=== PATIENT | male | born 1935 | race Caucasian/White ===

== ENCOUNTER → 2016-08-04 | Outpatient (CLI) | payer MEDICARE, OTHER ==
[~2016-08-04] MED LIST: ASPI-664 PO; FAMO20TA18 PO; LEVO500T72 PO; LINA5TAB PO; PIOG45TA6 PO
--- NOTE | 2016-08-04 14:04 | RADRPT ---
PROCEDURE: Retroperitoneal US. CLINICAL INDICATION: Renal insufficiency TECHNIQUE: Multiple sonographic images of the kidneys and retroperitoneum were obtained. The imag es were reviewed on a PACS workstation. COMPARISON: 10/31/2015 FINDINGS: The right kidney measures 8.3 cm. There is a 9 mm simple cyst in the right kidney. The left kidney was not well seen due to the patient's inability to cooperate. No kidney stones are visualized. There is no evidence for hydronephrosis. The urinary bladder is normal. RPTAT: AA IMPRESSION: Left kidney not well seen due to the patient's inability to cooperate. No gross evidence of hydronephrosis. .Ifeanyi Garza MD, Date Time Electronically viewed and signed by .Ifeanyi Garza MD, MD on 08/04/2016 14:04 .S/
--- NOTE | 2016-08-04 14:08 | RADRPT ---
PROCEDURE: US Carotids. CLINICAL INDICATION: bruit , PERIPHERAL VASCULAR DISEASE TECHNIQUE: Multiple sonographic of the carotid bifurcation region and vertebral arteries were obta ined utilizing laughlin scale, duplex and color-flow imaging. The images were reviewed on a PACS worksta tion. COMPARISON: No prior studies are available for comparison. FINDINGS: Right arm blood pressure 177/ 87 Left arm (pressure 147/ 79 Evaluation of the right carotid bifurcation region reveals mild to moderate calcific atherosclerotic disease. . There is a 26% stenosis in the right distal common carotid artery.. There is a 30% frandy nosis in the right carotid bulb. Evaluation of the left carotid bifurcation region reveals mild to moderate calcific atherosclerotic disease. . There is a 31% stenosis in the left carotid bulb region. There is antegrade flow within the right vertebral artery. There is retrograde flow in the vertebra l artery. RIGHT CAROTID MEASUREMENTS: Common Carotid Reekyw89.7 (cm/sec) Internal Carotid Artery - cxakvqmb70.6 (cm/sec) Internal Carotid Artery - mid60.1 (cm/sec) Internal Carotid Artery - hpegvg41.4 (cm/sec) Internal Carotid/Common Carotid1.49 LEFT CAROTID MEASUREMENTS: Common Carotid Plkgnv36.1 (cm/sec) Internal Carotid Artery - tmzhtozx66.3 (cm/sec) Internal Carotid Artery - mid70.4 (cm/sec) Internal Carotid Artery - .6 (cm/sec) Internal Carotid/Common Carotid1.13 RPTAT: AA IMPRESSION: No evidence for hemodynamically significant stenosis in the bilateral internal carotid arteries - va lidated velocity measurements with angiographic measurements, velocity criteria are extrapolated fro m diameter data as defined by the Society of Radiologists in Ultrasound Consensus Conference Radiolo gy 2003; 229;340-346. This study does indirectly reference the measurement of the distal ICA diamet er as the denominator for stenosis measurement. Retrograde flow in the left vertebral artery, suspicious for a proximal subclavian artery stenosis. .Ifeanyi Garza MD, Date Time Electronically viewed and signed by .Ifeanyi Garza MD, MD on 08/04/2016 14:08 .S/
== END | disposition home or self-care (01) ==
LOC: U/S 08:49
PROVIDERS: ATTEND Internal Medicine
DX: N18.2 Chronic kidney disease, stage 2 (mild) (principal); I73.9 Peripheral vascular disease, unspecified
CPT/HCPCS: 76775; 93880

== ENCOUNTER 2017-03-19 12:01 | Emergency (ER) | payer MEDICARE, OTHER ==
[~2017-03-19] VITALS: Ht 172.7 cm; Wt 51.5 kg
[2017-03-19 12:25] VITALS: Ht 172.7 cm; Wt 51.5 kg
[2017-03-19] MEDS ORDERED: SOD CHLORIDE 0.9% 1,000 ML IV STA (14:01)
[2017-03-19 14:15] LABS: BASOPHILS % 0.4 % (0.0-2.0); EOSINOPHILS % 0.2 % (0.0-7.0); HEMATOCRIT 40.1 % (42.0-52.0); HEMOGLOBIN 14.5 g/dl (14.0-18.0); LYMPHOCYTES % 23.8 % (15.0-51.0); MEAN CORPUSCULAR HEMOGLOBIN 32.9 pg (29.0-33.0); MEAN CORPUSCULAR HGB CONC 36.2 g/dl (32.0-37.0); MEAN CORPUSCULAR VOLUME 90.9 fl (82.0-101.0); MEAN PLATELET VOLUME 11.2 fl (7.4-10.4); MONOCYTE # 0.5 10^3/ul (0.3-0.9); MONOCYTES % 6.2 % (0.0-11.0); NEUTROPHIL # 5.8 10^3/ul (1.6-7.5); PLATELET COUNT 282 10^3/UL (140-415); RED BLOOD COUNT 4.41 10^6/ul (4.70-6.10); RED CELL DISTRIBUTION WIDTH 11.9 % (11.5-14.5); WHITE BLOOD COUNT 8.3 10^3/ul (4.8-10.8)
[2017-03-19] MEDS ORDERED: GABA100C14 PO (14:23)
[2017-03-19] MEDS ORDERED: ATOR20TA38 PO (14:24)
[2017-03-19] MEDS ORDERED: METF1000 PO (14:24)
[2017-03-19 14:35] LABS: ALBUMIN 4.5 g/dl (3.3-4.9); ALBUMIN/GLOBULIN RATIO 1.12; BILIRUBIN,INDIRECT 0.4 mg/dl (0-1.1); BILIRUBIN,TOTAL 0.4 mg/dl (0.2-1.3); CREATININE 1.61 mg/dl (0.61-1.24); POTASSIUM 4.7 mmol/L (3.5-5.1); TOTAL PROTEIN 8.5 g/dl (6.1-8.1)
--- NOTE | 2017-03-19 14:38 | ERD ---
ER Documentation Chief Complaint Chief Complaint hyperglycemia sent by angie LEACH This is an 82-year-old male with a past medical history of hypertension, hyperlipidemia, GERD, COPD, diabetes, on a baby aspirin daily, who is presenting from his primary care doctor's office for hyperglycemia. Patient is reportedly noncompliant on his medicines. He goes back and forth between here in [place] frequently, and he is does not take any of his medications as prescribed. He frequently comes to the ER when he has symptoms to seek treatment. Today, he had a normal office appointment. He does not endorse any symptoms, but he was told to come to the emergency department for a elevated blood sugar. The patient denies feeling sick recently. The patient denies fever or chills. The patient has had no headache or vision changes. The patient does not endorse neck or back pain. The patient denies lightheadedness or dizziness. The patient has had no chest pain or shortness of breath or trouble breathing. The patient denies nausea or vomiting. The patient denies abdominal pain or changes to bowel movements or urination. The patient has had no focal deficits. The patient has had no weakness or numbness or tingling to the face or extremities. ROS All systems reviewed and are negative except as per history of present illness. Medications Home Meds Active Scripts Aspirin* (Aspirin* EC) 81 Mg Tablet.dr, 81 MG PO DAILY for 30 Days, 2 Refills Prov:JERESY RODRIGUEZ 10/30/15 Reported Medications Metformin Hcl* (Metformin Hcl*) 1,000 Mg Tablet, 1000 MG PO WITH BREAKFAST DINNE , #30 TAB 03/19/17 Atorvastatin Calcium* (Atorvastatin Calcium*) 20 Mg Tablet, 20 MG PO QHS, #30 TAB 03/19/17 Gabapentin* (Gabapentin*) 100 Mg Capsule, 100 MG PO TID, #90 CAP 03/19/17 Discontinued Reported Medications Linagliptin (TRADJENTA) 5 Mg Tablet, 5 MG PO DAILY, TAB 10/21/15 Pioglitazone Hcl* (Actos*) 45 Mg Tablet, 45 MG PO DAILY, #30 TAB 10/21/15 Discontinued Scripts Levofloxacin* (Levaquin*) 500 Mg Tablet, 500 MG PO DAILY@06 for 5 Days, TAB Prov:JERSEY RODRIGUEZ 10/30/15 Famotidine* (Famotidine*) 20 Mg Tablet, 20 MG PO BID for 30 Days, TAB Prov:JERSEY RODRIGUEZ 10/30/15 Allergies Allergies: Coded Allergies: No Known Allergy (Unverified , 03/19/17) PMhx/Soc History of Surgery: No Anesthesia Reaction: No Hx Neurological Disorder: No Hx Respiratory Disorders: No Hx Cardiac Disorders: Yes (HTN) Hx Psychiatric Problems: No Hx Miscellaneous Medical Probl: Yes (htn, bradycardia,R sided PNA,COPD,tobacco abuse,lung nodule) Hx Alcohol Use: No Hx Substance Use: No Hx Tobacco Use: Yes FmHx Family History: diabetes Physical Exam Vitals Vital Signs Date Time Temp Pulse Resp B/P Pulse Ox O2 Delivery O2 Flow Rate FiO2 03/19/17 19:29 97.3 68 23 125/84 100 Room Air 68 03/19/17 18:06 75 18 130/87 99 Room Air 03/19/17 15:04 75 20 101/74 99 Room Air 03/19/17 12:25 97.3 69 20 105/59 100 Physical Exam Const: No apparent distress, well-developed, well-nourished Head: Atraumatic Eyes: Normal Conjunctiva. Extraocular movements intact. ENT: Normal External Ears, Nose and Mouth. Neck: Full range of motion. ~ No meningismus. Resp: Clear to auscultation bilaterally Cardio: Regular rate and rhythm, no murmurs Abd: Soft, non tender, non distended. Normal bowel sounds Skin: No petechiae or rashes Back: No midline or flank tenderness Ext: No cyanosis, or edema Neur: Awake and alert, oriented 4. Cranial nerves intact. No facial droop. Normal strength and sensation in all extremities. Coordination with finger to nose normal. Psych: Normal Mood and Affect Result Diagram: 03/19/17 1405 03/19/17 1830 Results 24 hrs Laboratory Tests Test 03/19/17 13:39 03/19/17 14:05 03/19/17 15:43 03/19/17 18:30 Bedside Glucose 358mg/dL 308mg/dL White Blood Count 8.310^3/ul Red Blood Count 4.4110^6/ul Hemoglobin 14.5g/dl Hematocrit 40.1% Mean Corpuscular Volume 90.9fl Mean Corpuscular Hemoglobin 32.9pg Mean Corpuscular Hemoglobin Concent 36.2g/dl Red Cell Distribution Width 11.9% Platelet Count 61749^3/UL Mean Platelet Volume 11.2fl Neutrophils % 69.0% Lymphocytes % 23.8% Monocytes % 6.2% Eosinophils % 0.2% Basophils % 0.4% Nucleated Red Blood Cells % 0.0/100WBC Neutrophils # 5.810^3/ul Lymphocytes # 2.010^3/ul Monocytes # 0.510^3/ul Eosinophils # 0.010^3/ul Basophils # 0.010^3/ul Nucleated Red Blood Cells # 0.010^3/ul Sodium Level 142mmol/L 140mmol/L Potassium Level 4.7mmol/L 4.4mmol/L Chloride Level 99mmol/L 107mmol/L Carbon Dioxide Level 28mmol/L 23mmol/L Anion Gap 20 14 Blood Urea Nitrogen 51mg/dl 45mg/dl Creatinine 1.61mg/dl 1.23mg/dl Glucose Level 318mg/dl 298mg/dl Calcium Level 11.0mg/dl 9.3mg/dl Total Bilirubin 0.4mg/dl Direct Bilirubin 0.00mg/dl Indirect Bilirubin 0.4mg/dl Aspartate Amino Transf (AST/SGOT) 17IU/L Alanine Aminotransferase (ALT/SGPT) 19IU/L Alkaline Phosphatase 110IU/L Total Protein 8.5g/dl Albumin 4.5g/dl Globulin 4.00g/dl Albumin/Globulin Ratio 1.12 Current Medications Medications (Trade) Dose Ordered Sig/Malcolm Route PRN Reason Start Time Stop Time Status Last Admin Dose Admin Sodium Chloride 1,000 ml @ 1,000 mls/hr Q1H STAT IV 03/19/17 14:01 03/19/17 15:00 DC 03/19/17 14:12 Sodium Chloride (NS) 1,000 ml @ 1,000 mls/hr Q1H ONCE IV 03/19/17 17:30 03/19/17 18:29 DC 03/19/17 17:16 Insulin Human Regular (Humulin R) 5 unit ONCE ONCE SC 03/19/17 17:30 03/19/17 17:31 DC 03/19/17 17:28 Procedures/MDM MDM The patient's presentation warrants further investigation. The patient did have an elevated POC glucose here. Blood work will be obtained and reviewed for further evaluation of his hyperglycemia. LABS The patient's blood work was obtained and reviewed. The patient's CBC shows no leukocytosis or left shift. The patient is afebrile and does not appear systemically ill. I do not suspect a systemic infection. The patient is not anemic today. The patient's platelet count is unremarkable. The patient's CMP shows a significant hyperglycemia above 300. It also reveals a very mild anion gap. The patient does not endorse symptoms of DKA, but I will give him 2 L IV fluids and insulin in the emergency department to close the gap. The patient also has an elevated creatinine today. Looking back on previous records, it appears that his baseline is around 1.0. His creatinine was 1.6 today. This is likely related to his noncompliance with medications and his poorly controlled diabetes. After treatment, a repeat BMP was obtained that demonstrated a closed gap, improved blood sugar and improved creatinine. TREATMENT/DISPOSITION At this time, I feel the patient is stable for discharge. He needs to have a discussion with his primary care doctor about his goals of therapy. I did discuss with the patient the need to comply with his medications as well as the risks he takes on himself by not complying. I do not see any evidence of infection in this patient. He may follow-up with his primary care doctor regarding his diabetes as well as renal function. At this time, I feel that the patient stable for discharge. He will need follow -up with his primary care physician in 2-3 days. He will be given strict precautions with which to return to the emergency department. The patient's blood pressure was elevated at greater than 120/80 while in the emergency department. The patient was otherwise stable with no evidence of hypertensive urgency or emergency. The patient will require reevaluation of his blood pressure in 2-3 days, but this may be completed by a primary care physician as an outpatient. He does not require admission for blood pressure control. Departure Diagnosis: Primary Impression: Hyperglycemia Additional Impressions: Kidney disease Noncompliance with medications Condition: CATHY Harrington MD Mar 19, 2017 14:38
[2017-03-19] MEDS ORDERED: INSULIN REGULAR, HUMAN 100 UNIT/1 ML 3ML VIAL SC ONE (17:30)
[2017-03-19] MEDS ORDERED: SOD CHLORIDE 0.9% 1,000 ML IV ONE (17:30)
[2017-03-19 19:15] LABS: CALCIUM 9.3 mg/dl (8.4-10.2); CREATININE 1.23 mg/dl (0.61-1.24); POTASSIUM 4.4 mmol/L (3.5-5.1)
[2017-03-19 19:29] VITALS: BP 125/84; PULSE 68; RESP 23; TEMP 97.3
== END 2017-03-19 20:24 | disposition home or self-care (01) ==
LOC: E/R 12:01
DX: E11.65 Type 2 diabetes mellitus with hyperglycemia (principal); N20.0 Calculus of kidney; I10 Essential (primary) hypertension; J44.9 Chronic obstructive pulmonary disease, unspecified; Z79.82 Long term (current) use of aspirin; Z79.84 Long term (current) use of oral hypoglycemic drugs; Z91.19 Patient's noncompliance with other medical treatment and regimen
CPT/HCPCS: 80048; 80053; 82962; 85025; 96372; 99284; J7030

== ENCOUNTER 2017-03-21 11:51 | Inpatient (IN) | payer MEDICARE, OTHER ==
[~2017-03-21] VITALS: Ht 162.6 cm; Wt 51.5 kg
[~2017-03-21 11:51] MED LIST changes: +ATOR20TA38 PO; -FAMO20TA18 PO; +GABA100C14 PO; -LEVO500T72 PO; -LINA5TAB PO; +METF1000 PO; -PIOG45TA6 PO
[2017-03-21] MEDS ORDERED: SOD CHLORIDE 0.9% 1,000 ML IV STA (16:29)
[2017-03-21] MEDS ORDERED: CARV6.2579 PO (17:37)
[2017-03-21] MEDS ORDERED: LACTATED RINGER'S 1,000 ML IV STA (17:50)
[2017-03-21] MEDS ORDERED: INSULIN REGULAR 10 ML INJ SC STA (17:50)
[2017-03-21] MEDS ORDERED: METF850T PO (17:51)
[2017-03-21] MEDS ORDERED: ONDANSETRON 4 MG INJ IV PRN ×2 (19:00→19:30)
[2017-03-21] MEDS ORDERED: ACETAMINOPHEN 325 MG TAB PO PRN ×2 (19:00→19:30)
--- NOTE | 2017-03-21 19:10 | ERD ---
ER Documentation Chief Complaint Chief Complaint SENT BY CLINIC FOR HYPERGLYCEMIA (BS 511) HPI 83-year-old male with a history of diabetes and high cholesterol sent from his primary care doctor's clinic for hyperglycemia. Patient states he was here 2 days ago for the same reason. He denies any physical symptoms of chest pain, shortness of breath, dizziness, dysuria, fever, or chills. But per his daughter , he has been having increased urination and increased thirst. He used to be on metformin 1 g twice daily, however he ran out of these medications. Recently he was in [place] and was prescribed metformin 850 mg twice daily. He is not on any other diabetes medications. Currently he is not taking any other medications as he is out of all of his other medications. ROS All systems reviewed and are negative except as per history of present illness. Medications Home Meds Active Scripts Aspirin* (Aspirin* EC) 81 Mg Tablet.dr, 81 MG PO DAILY for 30 Days, 2 Refills Prov:JERSEY RODRIGUEZ. 10/30/15 Reported Medications Metformin Hcl* (Metformin Hcl*) 850 Mg Tablet, 850 MG PO WITH BREAKFAST DINNE, # 60 TAB WHEN PATIENT IS OUT OF HIS MEDS IN [facility],HE BUY AND TAKE THERE METFORMIN 850MG. 03/21/17 Carvedilol* (Carvedilol*) 6.25 Mg Tablet, 6.25 MG PO BID, #60 TAB 03/21/17 Metformin Hcl* (Metformin Hcl*) 1,000 Mg Tablet, 1000 MG PO WITH BREAKFAST DINNE , #30 TAB 03/19/17 Atorvastatin Calcium* (Atorvastatin Calcium*) 20 Mg Tablet, 20 MG PO QHS, #30 TAB 03/19/17 Gabapentin* (Gabapentin*) 100 Mg Capsule, 100 MG PO TID, #90 CAP 03/19/17 Discontinued Reported Medications Linagliptin (TRADJENTA) 5 Mg Tablet, 5 MG PO DAILY, TAB 10/21/15 Pioglitazone Hcl* (Actos*) 45 Mg Tablet, 45 MG PO DAILY, #30 TAB 10/21/15 Discontinued Scripts Levofloxacin* (Levaquin*) 500 Mg Tablet, 500 MG PO DAILY@06 for 5 Days, TAB Prov:JERSEY RODRIGUEZ 10/30/15 Famotidine* (Famotidine*) 20 Mg Tablet, 20 MG PO BID for 30 Days, TAB Prov:JERSEY RODRIGUEZ. 10/30/15 Allergies Allergies: Coded Allergies: No Known Allergy (Unverified , 03/21/17) PMhx/Soc History of Surgery: No Anesthesia Reaction: No Hx Neurological Disorder: No Hx Respiratory Disorders: No Hx Cardiac Disorders: Yes (HTN) Hx Psychiatric Problems: No Hx Miscellaneous Medical Probl: Yes (htn, bradycardia,R sided PNA,COPD,tobacco abuse,lung nodule) Hx Alcohol Use: No Hx Substance Use: No Hx Tobacco Use: Yes Smoking Status: Former smoker FmHx Family History: No coronary disease Physical Exam Vitals Vital Signs Date Time Temp Pulse Resp B/P Pulse Ox O2 Delivery O2 Flow Rate FiO2 03/21/17 16:40 61 20 87/75 100 Room Air 03/21/17 11:53 96.8 62 20 162/69 98 Physical Exam Const: Appears stated age, no apparent distress, nontoxic, thin male Head: Atraumatic Eyes: Normal Conjunctiva ENT: Dry mucous membranes Neck: Full range of motion..~ No meningismus. Resp: Clear to auscultation bilaterally Cardio: Regular rate and rhythm, no murmurs Abd: Soft, non tender, non distended. Normal bowel sounds Skin: No petechiae or rashes Back: No midline or flank tenderness Ext: No cyanosis, or edema Neur: Awake and alert, oriented 3, cranial nerves intact, strength and sensations intact in all 4 extremities Psych: Normal Mood and Affect Result Diagram: 03/21/17 1655 03/21/17 1655 Results 24 hrs Laboratory Tests Test 03/21/17 16:55 03/21/17 17:50 White Blood Count 6.210^3/ul Red Blood Count 4.1110^6/ul Hemoglobin 13.6g/dl Hematocrit 38.2% Mean Corpuscular Volume 92.9fl Mean Corpuscular Hemoglobin 33.1pg Mean Corpuscular Hemoglobin Concent 35.6g/dl Red Cell Distribution Width 12.4% Platelet Count 33818^3/UL Mean Platelet Volume 10.8fl Neutrophils % 60.8% Lymphocytes % 30.5% Monocytes % 6.1% Eosinophils % 1.8% Basophils % 0.5% Nucleated Red Blood Cells % 0.0/100WBC Neutrophils # 3.810^3/ul Lymphocytes # 1.910^3/ul Monocytes # 0.410^3/ul Eosinophils # 0.110^3/ul Basophils # 0.010^3/ul Nucleated Red Blood Cells # 0.010^3/ul Sodium Level 137mmol/L Potassium Level 5.3mmol/L Chloride Level 99mmol/L Carbon Dioxide Level 24mmol/L Anion Gap 19 Blood Urea Nitrogen 40mg/dl Creatinine 1.36mg/dl Glucose Level 588mg/dl Calcium Level 9.6mg/dl Urine Color YELLOW Urine Clarity CLEAR Urine pH 5.0 Urine Specific [place] 1.022 Urine Ketones NEGATIVEmg/dL Urine Nitrite NEGATIVEmg/dL Urine Bilirubin NEGATIVEmg/dL Urine Urobilinogen NEGATIVEmg/dL Urine Leukocyte Esterase NEGATIVELeu/ul Urine Hemoglobin NEGATIVEmg/dL Urine Glucose 3+mg/dL Urine Total Protein NEGATIVEmg/dl Current Medications Medications (Trade) Dose Ordered Sig/Malcolm Route PRN Reason Start Time Stop Time Status Last Admin Dose Admin Sodium Chloride 1,000 ml @ 1,000 mls/hr Q1H STAT IV 03/21/17 16:29 03/21/17 17:28 DC 03/21/17 18:05 Lactated Ringer's (Lr) 1,000 ml @ 1,000 mls/hr Q1H STAT IV 03/21/17 17:50 03/21/17 18:49 DC 03/21/17 18:46 Insulin Human Regular (Novolin-R) 10 unit ONCE STAT SC 03/21/17 17:50 03/21/17 17:53 DC Ondansetron HCl (Zofran Inj) 4 mg BRIDGE ORDER PRN IV NAUSEA AND/OR VOMITING 03/21/17 19:00 03/22/17 18:59 Acetaminophen (Tylenol Tab) 650 mg ER BRIDGE PRN PO MILD PAIN/FEVER 03/21/17 19:00 03/22/17 18:59 Procedures/MDM EMERGENT LABS AND DIAGNOSTIC STUDIES: Lab Results above were reviewed and interpreted by me. CBC unremarkable BMP shows signs of renal insufficiency, mild hyperkalemia, and severe hyperglycemia UA shows 3+ blood, no ketones 12-lead EKG was interpreted by Charity Johansen MD: Normal Sinus Rhythm Normal axis Normal intervals No acute ST or T wave changes suggestive of acute ischemia or STEMI. Initial Nursing notes reviewed. Previous Medical Records requested via the Electronic Health Record. EMERGENCY DEPARTMENT COURSE / MEDICAL DECISION MAKING: Patient is presenting for the second time to the ER with hyperglycemia not well controlled with his metformin. Vitals are stable. I have a low suspicion for sepsis. Labs were notable for renal insufficiency but no evidence of metabolic acidosis. His hyperglycemia was treated with 2 L of IV fluids and subcu insulin. At this time his EKG does not show evidence of hyperkalemic changes. However I do not believe the patient is stable for discharge and will require admission for treatment of his severe hyperglycemia. Critical Care Time: 35 minutes Treatments/Evaluations: Close monitoring and treatment of unstable vital signs, cardiorespiratory, and neurologic status, while maintaining tight balance of fluid, respiratory, and cardiac interventions. This time includes discussing the case with the patient and the patients family. This time does not include all procedures stated elsewhere in this record. This time also includes reviewing old records, labs and radiological studies. This time includes examining and re-examining the patient. Additionally, this time also includes arranging care with admitting and consulting physicians. Departure Diagnosis: Primary Impression: Uncontrolled diabetes mellitus Diabetes mellitus type: type 2 Diabetes mellitus complication status: without complication Diabetes mellitus [facility] insulin use: without intermission coordinator use Qualified Code: E11.65 - Uncontrolled type 2 diabetes mellitus without complication, without long-term current use of insulin Additional Impressions: Hyperkalemia Renal insufficiency Condition: Serious JESSICA JOHANSEN MD Mar 21, 2017 19:07
--- NOTE | 2017-03-21 19:15 | PN ---
Date/Time of Note Date/Time of Note DATE: 03/21/17 TIME: 19:15 Exam/Review of Systems Vital Signs Vitals Vital Signs Date Time Temp Pulse Resp B/P Pulse Ox O2 Delivery O2 Flow Rate FiO2 03/21/17 16:40 61 20 87/75 100 Room Air 03/21/17 11:53 96.8 Results Result Diagram: 03/21/17 1655 03/21/17 1655 Results 24 hrs Laboratory Tests Test 03/21/17 16:55 03/21/17 17:50 White Blood Count 6.2 # Red Blood Count 4.11 L Hemoglobin 13.6 L Hematocrit 38.2 L Mean Corpuscular Volume 92.9 Mean Corpuscular Hemoglobin 33.1 H Mean Corpuscular Hemoglobin Concent 35.6 Red Cell Distribution Width 12.4 Platelet Count 230 Mean Platelet Volume 10.8 H Neutrophils % 60.8 Lymphocytes % 30.5 Monocytes % 6.1 Eosinophils % 1.8 Basophils % 0.5 Nucleated Red Blood Cells % 0.0 Neutrophils # 3.8 Lymphocytes # 1.9 Monocytes # 0.4 Eosinophils # 0.1 Basophils # 0.0 Nucleated Red Blood Cells # 0.0 Sodium Level 137 Potassium Level 5.3 H Chloride Level 99 Carbon Dioxide Level 24 Anion Gap 19 H Blood Urea Nitrogen 40 H Creatinine 1.36 H Glucose Level 588 #*H Calcium Level 9.6 Urine Color YELLOW Urine Clarity CLEAR Urine pH 5.0 Urine Specific [place] 1.022 Urine Ketones NEGATIVE Urine Nitrite NEGATIVE Urine Bilirubin NEGATIVE Urine Urobilinogen NEGATIVE Urine Leukocyte Esterase NEGATIVE Urine Hemoglobin NEGATIVE Urine Glucose 3+ H Urine Total Protein NEGATIVE Medications Medications Current Medications Aspirin (Halfprin) 81 mg DAILY PO ; Start 03/22/17 at 09:00 Atorvastatin Calcium (Lipitor) 20 mg QHS PO ; Start 03/21/17 at 21:00 Carvedilol (Coreg) 6.25 mg BID PO ; Start 03/21/17 at 21:00 Gabapentin 100 mg 100 mg TID PO ; Start 03/21/17 at 21:00; Status UNV Sodium Chloride (NS) 1,000 ml @ 100 mls/hr Q10H IV ; Start 03/21/17 at 19:01; Status UNV Ondansetron HCl (Zofran Inj) 4 mg Q6H PRN IV NAUSEA AND/OR VOMITING; Start 03/21/17 at 19:30; Status UNV Acetaminophen (Tylenol Tab) 650 mg Q6H PRN PO PAIN LEVEL 1-3 OR FEVER; Start 03/21/17 at 19:30; Status UNV Docusate Sodium (Colace) 100 mg Q12H PRN PO CONSTIPATION; Start 03/21/17 at 19: 30; Status UNV Magnesium Hydroxide (Milk Of Mag) 30 ml DAILY PRN PO CONSTIPATION; Start at 19:30; Status UNV Heparin Sodium (Porcine) (Heparin (5000 Units/0.5 ml)) 5,000 unit Q12 SC ; Start 03/21/17 at 21:00; Status UNV Miscellaneous Information (* Miscellaneous Pharmacy Order) Discontinue current oral sulfonylur... ONCE ONCE XX ; Start 03/21/17 at 19:30; Stop 03/21/17 at 19: 31; Status UNV Diagnostic Test (Pha) (Accu-Chek) 1 ea XX ; Start 03/22/17 at 02:00; Status UNV Insulin Glargine (Lantus) 10 unit DAILY@08 SC ; Start 03/22/17 at 08:00; Status UNV Miscellaneous Information (* Miscellaneous Pharmacy Order) HYPOGLYCEMIA PROTOCOL w... ONCE ONCE XX ; Start 03/21/17 at 19:30; Stop 03/21/17 at 19:31; Status UNV Miscellaneous Information (* Miscellaneous Pharmacy Order) Discontinue all previ... ONCE ONCE XX ; Start 03/21/17 at 19:30; Stop 03/21/17 at 19:31; Status UNV BECKI BATRES MD Mar 21, 2017 19:15
[2017-03-21] MEDS ORDERED: MAGNESIUM HYDROXIDE 30ML CUP PO PRN (19:30)
[2017-03-21] MEDS ORDERED: GLUCOSE GEL 15 GRAM TUBE BUCCAL PRN (19:30)
[2017-03-21] MEDS ORDERED: GLUCOSE GEL 15 GRAM TUBE PO PRN ×2 (19:30)
[2017-03-21] MEDS ORDERED: DOCUSATE SODIUM 100 MG CAP PO PRN (19:30)
[2017-03-21] MEDS ORDERED: GLUCAGON 1 MG INJ IM PRN (19:30)
[2017-03-21] MEDS ORDERED: DEXTROSE 50% 50 ML SYRINGE IV PRN ×2 (19:30)
[2017-03-21] MEDS ORDERED: NACL 0.9% 3 ML SYG IV SCH (19:30)
--- NOTE | 2017-03-21 19:36 | HP ---
Date/Time of Note Date/Time of Note DATE: 03/21/17 TIME: 19:16 Assessment/Plan VTE Prophylaxis VTE Prophylaxis Intervention: heparin Assessment/Plan Assessment/Plan 1. Diabetes Mellitus with Hyperglycemia - Patient given 10 units of Novolin in ED. Will start accuchecks and ISS - Started on Lantus as well and will consult certified lactation educator - A1c ordered - Hold PO Metformin. Explained to patient and family at bedside that patient will be on insulin regime while inpatient and depending on his A1c will decide home medications - Patient advised to cut down on carb intake which contributes to elevated sugars - IVF given 2. YARI vs YARI on CKD - Will give IVF and monitor renal function - Will check renal ultrasound in setting of uncontrolled DM to evaluate for CKD changes. Had US in 07/2016 but could not evaluate L kidney due to patient noncooperative - If no improvement will consider Nephrology consult 3. HTN - Continue on home medications and adjust as needed 4. Peripheral neuropathy - Continue on gabapentin and will d/c if renal function worsens 5. Hyperkalemia - Will continue monitoring. Given Novolin so should correct 6. Diet - Carb control 7. DVT ppx - Heparin 8. Code Status - Full code 9. Disposition - Admit to Med/Surg for glycemic control HPI/ROS Admit Date/Time Admit Date/Time 03/21/17 Hx of Present Illness 82 yo M with PMH HTN, HLD, GERD, COPD, and DM was sent from his PCP for elevated sugars. Patient was recently in the ED for similar issues and discharge home secondary to being asymptomatic and instructed to follow up with PCP in 2 days. Patient was found to have sugar in 500 today but denies any fevers, chills, dizziness, nausea, vomiting, LOC, headaches, confusion, chest pain, shortness of breath, or abdominal issues. Patient is noncompliant with his medications. He is usually on Metformin 1gm BID but ran out of medication. He has 850mg BID that he was prescribed in [place]. He states his sugars are usually very elevated but does not have any symptoms besides neuropathy of the feet. Patient was given fluids in the ED as well as Novolog 10units. ROS All 12 systems reviewed and pertinent positives as per HPI. All others negative. Constitutional: no complaints, No chills, No diaphoresis, No disoriented, No fatigue, No nausea Eyes: no complaints ENT: no complaints, No congestion, No discharge Respiratory: no complaints, No cough, No shortness of breath, No sputum, No wheezing Cardiovascular: No chest pain, No edema, No lightheadedness, No palpitations Gastrointestinal: No constipation, No diarrhea, No nausea, No pain, No vomiting Genitourinary: no complaints Musculoskeletal: No back pain, No restricted range of motion, No swelling Skin: No erythema, No pruritis, No rash Neurologic: other (peripheral neuropathy lower extremities), No confusion, No dizziness, No focal-weakness, No headache, No syncope Endocrine: no complaints Lymphatic: no complaints Psychological: nl mood/affect Immunologic: no complaints PMH/Family/Social Past Medical History Medical History: diabetes, GERD, high cholesterol, hypertension Past Surgical History Past Surgical Hx: no surgical history Family History Significant Family History: no pertinent family hx Social History Alcohol Use: none Smoking Status: Former smoker Drug Use: none Exam/Review of Systems Vital Signs Vitals Vital Signs Date Time Temp Pulse Resp B/P Pulse Ox O2 Delivery O2 Flow Rate FiO2 03/21/17 16:40 61 20 87/75 100 Room Air 03/21/17 11:53 96.8 Exam Constitutional: alert, oriented, well developed, No distress Psych: nl mood/affect Head: atraumatic, normocephalic Eyes: EOMI, nl sclera ENMT: mucosa pink and moist Neck: non-tender, supple Respiratory: clear to auscultation, No crackles/rales, No wheezing Cardiovascular: regular rate and rhythm, No murmurs/extra sounds Gastrointestinal: bowel sounds, non-tender, soft, No distended, No rebound or guarding Genitourinary - Male: No CVA tenderness Musculoskeletal: nl extremities to inspection, other (muscle wasting), No joint tenderness, No muscle weakness Extremities: No calf tenderness, No clubbing, No edema Neurological: VOCATIONAL NURSE LVN II-XII intact, nl mental status, nl speech Skin: other (poor skin turgor) Lymph: nl lymph nodes Labs Result Diagram: 03/21/17165403/21/175 Medications Medications Home medications reviewed Current Medications Aspirin (Halfprin) 81 mg DAILY PO ; Start 03/22/17 at 09:00 Atorvastatin Calcium (Lipitor) 20 mg QHS PO ; Start 03/21/17 at 21:00 Carvedilol (Coreg) 6.25 mg BID PO ; Start 03/21/17 at 21:00 Gabapentin 100 mg 100 mg TID PO ; Start 03/21/17 at 21:00; Status UNV Sodium Chloride (NS) 1,000 ml @ 100 mls/hr Q10H IV ; Start 03/21/17 at 19:01; Status UNV Ondansetron HCl (Zofran Inj) 4 mg Q6H PRN IV NAUSEA AND/OR VOMITING; Start 03/21/17 at 19:30; Status UNV Acetaminophen (Tylenol Tab) 650 mg Q6H PRN PO PAIN LEVEL 1-3 OR FEVER; Start 03/21/17 at 19:30; Status UNV Docusate Sodium (Colace) 100 mg Q12H PRN PO CONSTIPATION; Start 03/21/17 at 19: 30; Status UNV Magnesium Hydroxide (Milk Of Mag) 30 ml DAILY PRN PO CONSTIPATION; Start at 19:30; Status UNV Heparin Sodium (Porcine) (Heparin (5000 Units/0.5 ml)) 5,000 unit Q12 SC ; Start 03/21/17 at 21:00; Status UNV Miscellaneous Information (* Miscellaneous Pharmacy Order) Discontinue current oral sulfonylur... ONCE ONCE XX ; Start 03/21/17 at 19:30; Stop 03/21/17 at 19: 31; Status UNV Diagnostic Test (Pha) (Accu-Chek) 1 XX ; Start 03/22/17 at 02:00; Status UNV Insulin Glargine (Lantus) 10 unit DAILY@08 SC ; Start 03/22/17 at 08:00; Status UNV Miscellaneous Information (* Miscellaneous Pharmacy Order) HYPOGLYCEMIA PROTOCOL w... ONCE ONCE XX ; Start 03/21/17 at 19:30; Stop 03/21/17 at 19:31; Status UNV Miscellaneous Information (* Miscellaneous Pharmacy Order) Discontinue all previ... ONCE ONCE XX ; Start 03/21/17 at 19:30; Stop 03/21/17 at 19:31; Status UNV BECKI BATRES MD Mar 21, 2017 19:36
[2017-03-21] MEDS: SOD CHLORIDE 0.9% 1,000 ML IV SCH (19:37)
--- NOTE | 2017-03-21 20:37 | RADRPT ---
PROCEDURE: US Renal CLINICAL INDICATION: Chronic kidney disease TECHNIQUE: Multiple sonographic images of the kidneys and bladder were obtained. Evaluation of th e kidneys and bladder was performed as well with laughlin scale and color and Doppler evaluation using a curved array transducer. The images were reviewed on a high-resolution PACS workstation. COMPARISON: Ultrasound 08/04/2016, CT 10/21/2015 FINDINGS: The right kidney measures 8.7 cm. The left kidney measures 8.5 cm. Renal cortical echogenicity is w ithin normal limits. There is a mid to lower pole right renal simple cyst 1.4 cm in diameter. Kidne ys are otherwise normal in appearance.. No perinephric fluid collection is seen. The bladder is dis tended.. IMPRESSION: 1. Simple right renal cyst. Kidneys otherwise normal appearance. 2. No hydronephrosis. 3. Mildly distended urinary bladder. RPTAT: HMVK .Darrin Contreras MD, Date Time Electronically viewed and signed by .Darrin Contreras MD, on 03/21/2017 20:36 .K/
[2017-03-21] MEDS ORDERED: INSULIN ASPART [NOVOLOG] 3 ML PEN SC SCH (21:00)
[2017-03-21] MEDS: GABAPENTIN 100 MG CAP PO SCH (21:39)
[2017-03-21] MEDS: ATORVASTATIN 20 MG TAB PO SCH (21:39)
[2017-03-21] MEDS: HEPARIN 5,000 UNIT/0.5 ML VIAL SC SCH (21:41)
[2017-03-21 22:30] VITALS: BP 117/67; RESP 20
[2017-03-21 23:02] VITALS: Ht 162.6 cm; Wt 51.5 kg
[2017-03-22] VITALS (9 sets, daily range): BP systolic 102–172; BP diastolic 60–101; PULSE 58–65; RESP 18–24
[2017-03-22] MEDS: ACCU-CHEK XX SCH (02:27)
[2017-03-22] MEDS: SOD CHLORIDE 0.9% 1,000 ML IV SCH ×2 (05:10→16:32)
[2017-03-22] MEDS ORDERED: POTASSIUM CHLORIDE (SR) 20 MEQ TAB PO STA (08:15)
[2017-03-22] MEDS: INSULIN ASPART [NOVOLOG] 3 ML PEN SC SCH ×4 (08:16→21:00)
[2017-03-22] MEDS: GABAPENTIN 100 MG CAP PO SCH ×3 (08:43→21:28)
[2017-03-22] MEDS: ASPIRIN (EC) 81 MG TAB PO SCH (08:43)
[2017-03-22] MEDS: HEPARIN 5,000 UNIT/0.5 ML VIAL SC SCH ×2 (08:48→21:37)
[2017-03-22] MEDS: INSULIN GLARGINE [LANtus] 3 ML PEN SC SCH (09:21)
[2017-03-22] MEDS ORDERED: MAGNESIUM SULFATE 6 GM in SOD CHLORIDE 0.9% 100 ML IVPB SCH (10:00)
--- NOTE | 2017-03-22 11:33 | PN ---
Date/Time of Note Date/Time of Note DATE: 03/22/17 TIME: 11:26 Assessment/Plan VTE Prophylaxis VTE Prophylaxis Intervention: heparin Lines/Catheters IV Catheter Type (from Nrsg): Peripheral IV Assessment/Plan Assessment/Plan 1. Diabetes Mellitus with Hyperglycemia - Patient has been experiencing fluctuating sugars but remains asymptomatic - Discussed with family as well as patient the range his sugars should be in the am and after meals - asthma educator consulted - On Lantus and ISS - A1c 11.4 2. YARI - improving - Cr improving. Will continue on IVF - Renal US showed normal appearance 3. HTN - Continue on home medications and adjust as needed 4. Peripheral neuropathy - Continue on gabapentin 5. Hypokalemia - replaced 6. HypoMg - replaced 7. Disposition - Continue monitoring on med/surg - Need better sugar control since has had multiple ED visit for hyperglycemia Subjective 24 Hr Interval Summary Free Text/Dictation Patient resting comfortably with family at bedside. Denies any new issues. Had episodes of hypoglycemia but denies any symptoms. Exam/Review of Systems Vital Signs Vitals Vital Signs Date Time Temp Pulse Resp B/P Pulse Ox O2 Delivery O2 Flow Rate FiO2 03/22/17 08:40 97.6 62 03/22/17 07:26 18 130/82 100 03/22/17 04:20 Room Air Intake and Output 03/21/17 03/21/17 03/22/17 15:00 23:00 07:00 Intake Total 1200 ml Balance 1200 ml Exam Constitutional: alert, oriented, well developed, No distress Head: atraumatic, normocephalic Eyes: EOMI, nl sclera ENMT: mucosa pink and moist Neck: non-tender, supple Respiratory: clear to auscultation, No crackles/rales, No wheezing Cardiovascular: regular rate and rhythm, No murmurs/extra sounds Gastrointestinal: bowel sounds, non-tender, soft, No distended, No rebound or guarding Extremities: No calf tenderness, No clubbing, No edema Neurological: MACHINE COREMAKER II-XII intact, nl mental status, nl speech Results Result Diagram: 03/22/17 0505 03/22/17 0505 Results 24 hrs Laboratory Tests Test 03/21/17 16:55 03/21/17 17:50 03/21/17 19:36 03/21/17 21:23 White Blood Count 6.2 # Red Blood Count 4.11 L Hemoglobin 13.6 L Hematocrit 38.2 L Mean Corpuscular Volume 92.9 Mean Corpuscular Hemoglobin 33.1 H Mean Corpuscular Hemoglobin Concent 35.6 Red Cell Distribution Width 12.4 Platelet Count 230 Mean Platelet Volume 10.8 H Neutrophils % 60.8 Lymphocytes % 30.5 Monocytes % 6.1 Eosinophils % 1.8 Basophils % 0.5 Nucleated Red Blood Cells % 0.0 Neutrophils # 3.8 Lymphocytes # 1.9 Monocytes # 0.4 Eosinophils # 0.1 Basophils # 0.0 Nucleated Red Blood Cells # 0.0 Sodium Level 137 Potassium Level 5.3 H Chloride Level 99 Carbon Dioxide Level 24 Anion Gap 19 H Blood Urea Nitrogen 40 H Creatinine 1.36 H Glucose Level 588 #*H Calcium Level 9.6 Urine Color YELLOW Urine Clarity CLEAR Urine pH 5.0 Urine Specific [place] 1.022 Urine Ketones NEGATIVE Urine Nitrite NEGATIVE Urine Bilirubin NEGATIVE Urine Urobilinogen NEGATIVE Urine Leukocyte Esterase NEGATIVE Urine Hemoglobin NEGATIVE Urine Glucose 3+ H Urine Total Protein NEGATIVE Bedside Glucose 572 *H 359 H Test 03/22/17 01:56 03/22/17 01:58 03/22/17 02:25 03/22/17 02:28 Bedside Glucose 38 *L 33 *L 69 L Glucose Level 50 #*L Test 03/22/17 02:48 03/22/17 03:06 03/22/17 05:05 03/22/17 07:53 Bedside Glucose 100 134 305 H White Blood Count 8.6 # Red Blood Count 3.91 L Hemoglobin 13.0 L Hematocrit 36.1 L Mean Corpuscular Volume 92.3 Mean Corpuscular Hemoglobin 33.2 H Mean Corpuscular Hemoglobin Concent 36.0 Red Cell Distribution Width 12.3 Platelet Count 221 Mean Platelet Volume 10.8 H Neutrophils % 78.3 H Lymphocytes % 14.4 L Monocytes % 5.2 Eosinophils % 1.5 Basophils % 0.3 Nucleated Red Blood Cells % 0.0 Neutrophils # 6.7 Lymphocytes # 1.2 Monocytes # 0.5 Eosinophils # 0.1 Basophils # 0.0 Nucleated Red Blood Cells # 0.0 Sodium Level 143 Potassium Level 3.6 Chloride Level 106 Carbon Dioxide Level 24 Anion Gap 17 H Blood Urea Nitrogen 28 #H Creatinine 1.13 Glucose Level 242 #H Hemoglobin A1c 11.4 H Calcium Level 8.6 Phosphorus Level 4.7 Magnesium Level 1.0 L Albumin 3.4 Medications Medications Current Medications Aspirin (Halfprin) 81 mg DAILY PO Last administered on 03/22/17 08:43; Admin Dose 81 MG; Start 03/22/17 at 09:00 Atorvastatin Calcium (Lipitor) 20 mg QHS PO Last administered on 03/21/17 21: 39; Admin Dose 20 MG; Start 03/21/17 at 21:00 Carvedilol (Coreg) 6.25 mg BID PO Last administered on 03/22/17 08:43; Admin Dose 6.25 MG; Start 03/21/17 at 21:00 Gabapentin 100 mg 100 mg TID PO Last administered on 03/22/17 08:43; Admin Dose 100 MG; Start 03/21/17 at 21:00 Sodium Chloride (NS) 1,000 ml @ 100 mls/hr Q10H IV Last administered on 05:10; Admin Dose 100 MLS/HR; Start 03/21/17 at 19:01 Ondansetron HCl (Zofran Inj) 4 mg Q6H PRN IV NAUSEA AND/OR VOMITING; Start 03/21/17 at 19:30 Acetaminophen (Tylenol Tab) 650 mg Q6H PRN PO PAIN LEVEL 1-3 OR FEVER; Start 03/21/17 at 19:30 Docusate Sodium (Colace) 100 mg Q12H PRN PO CONSTIPATION; Start 03/21/17 at 19: 30 Magnesium Hydroxide (Milk Of Mag) 30 ml DAILY PRN PO CONSTIPATION; Start at 19:30 Heparin Sodium (Porcine) (Heparin (5000 Units/0.5 ml)) 5,000 unit Q12 SC Last administered on 03/22/17 08:48; Admin Dose 5,000 UNIT; Start 03/21/17 at 21:00 Diagnostic Test (Pha) (Accu-Chek) 1 ea 02 XX Last administered on 03/22/17 02: 27; Admin Dose 1 EA; Start 03/22/17 at 02:00 Insulin Glargine (Lantus) 10 unit DAILY@08 SC Last administered on 03/22/17 09 :21; Admin Dose 10 UNIT; Start 03/22/17 at 08:00 Miscellaneous Information 1 ea NOTE XX ; Start 03/21/17 at 19:30 Glucose (Glutose) 15 gm Q15M PRN PO DECREASED GLUCOSE; Start 03/21/17 at 19:30 Glucose (Glutose) 22.5 gm Q15M PRN PO DECREASED GLUCOSE; Start 03/21/17 at 19: 30 Dextrose (D50w Syringe) 25 ml Q15M PRN IV DECREASED GLUCOSE; Start 03/21/17 at 19:30 Dextrose (D50w Syringe) 50 ml Q15M PRN IV DECREASED GLUCOSE; Start 03/21/17 at 19:30 Glucagon (Glucagen) 1 mg Q15M PRN IM DECREASED GLUCOSE; Start 03/21/17 at 19:30 Glucose (Glutose) 15 gm Q15M PRN BUCCAL DECREASED GLUCOSE; Start 03/21/17 at 19 :30 Influenza Virus Vaccine (Fluzone) 0.5 ml ONCE ONCE IM* ; Start 03/24/17 at 09:00 ; Stop 03/24/17 at 09:01 BECKI BATRES MD Mar 22, 2017 11:33
[2017-03-22] MEDS: ATORVASTATIN 20 MG TAB PO SCH (21:28)
[2017-03-23] MEDS ORDERED: ACCU-CHEK XX SCH (02:00)
[2017-03-23] MEDS: ACCU-CHEK XX SCH (02:00)
[2017-03-23 02:54] VITALS: BP 97/64; RESP 18
[2017-03-23] MEDS: SOD CHLORIDE 0.9% 1,000 ML IV SCH (03:39)
[2017-03-23 07:29] VITALS: BP 110/61; PULSE 56; RESP 20
[2017-03-23] MEDS: INSULIN ASPART [NOVOLOG] 3 ML PEN SC SCH ×4 (08:14→20:59)
[2017-03-23] MEDS: INSULIN GLARGINE [LANtus] 3 ML PEN SC SCH (08:15)
--- NOTE | 2017-03-23 09:51 | PN ---
Date/Time of Note Date/Time of Note DATE: 03/23/17 TIME: 09:45 Assessment/Plan VTE Prophylaxis VTE Prophylaxis Intervention: heparin Lines/Catheters IV Catheter Type (from Nrsg): Peripheral IV Assessment/Plan Assessment/Plan 1. Diabetes Mellitus with Hyperglycemia- improving - telehealth nurse educator on board and recommendations appreciated - Glucose has been better controlled with am 111 and post prandial 180 - On Lantus and ISS - A1c 11.4 - Holding Metformin but will resume upon discharge 2. YARI - resolved - will d/c IVF since eating and drinking well - Renal US showed normal appearance 3. HTN - Continue on home medications and adjust as needed 4. Peripheral neuropathy - Continue on gabapentin 5. Hyperkalemia - given insulin this am after labs resulted - Will repeat BMP at noon and treat as needed 6. HypoMg- resolved 7. Disposition - Continue monitoring on med/surg - If sugars remain stable, will d/c later today on current insulin regime Subjective 24 Hr Interval Summary Free Text/Dictation Patient states feeling well but has been experiencing constipation. Denies any acute issues and no overnight events. Exam/Review of Systems Vital Signs Vitals Vital Signs Date Time Temp Pulse Resp B/P Pulse Ox O2 Delivery O2 Flow Rate FiO2 03/23/17 07:29 97.4 56 20 110/61 100 Room Air Intake and Output 03/22/17 03/22/17 03/23/17 15:00 23:00 07:00 Intake Total 112 ml 2440 ml 1670 ml Output Total 750 ml 550 ml Balance 112 ml 1690 ml 1120 ml Exam Constitutional: alert, oriented, well developed, No distress Head: atraumatic, normocephalic Eyes: EOMI, nl sclera Neck: non-tender, supple Respiratory: clear to auscultation, No crackles/rales, No wheezing Cardiovascular: regular rate and rhythm, No murmurs Gastrointestinal: bowel sounds, non-tender, soft, No distended, No rebound or guarding Extremities: No calf tenderness, No clubbing, No edema Neurological: ELECTRONICS ENGINEER II-XII intact, nl mental status, nl speech Results Result Diagram: 03/23/17 0537 03/23/17 0537 Results 24 hrs Laboratory Tests Test 03/22/17 12:05 03/22/17 17:29 03/22/17 20:47 03/23/17 05:37 Bedside Glucose 293 H 207 99 White Blood Count 6.9 Red Blood Count 3.98 L Hemoglobin 12.6 L Hematocrit 37.3 L Mean Corpuscular Volume 93.7 Mean Corpuscular Hemoglobin 31.7 Mean Corpuscular Hemoglobin Concent 33.8 Red Cell Distribution Width 12.7 Platelet Count 208 Mean Platelet Volume 10.8 H Neutrophils % 57.1 Lymphocytes % 35.3 Monocytes % 4.2 Eosinophils % 2.4 Basophils % 0.6 Nucleated Red Blood Cells % 0.0 Neutrophils # 4.0 Lymphocytes # 2.5 Monocytes # 0.3 Eosinophils # 0.2 Basophils # 0.0 Nucleated Red Blood Cells # 0.0 Sodium Level 141 Potassium Level 5.3 H Chloride Level 111 H Carbon Dioxide Level 25 Anion Gap 10 # Blood Urea Nitrogen 21 H Creatinine 1.09 Glucose Level 111 # Calcium Level 8.2 L Phosphorus Level 3.3 Magnesium Level 2.0 # Albumin 2.9 L Test 03/23/17 08:01 Bedside Glucose 186 Medications Medications Current Medications Aspirin (Halfprin) 81 mg DAILY PO Last administered on 03/22/17 08:43; Admin Dose 81 MG; Start 03/22/17 at 09:00 Atorvastatin Calcium (Lipitor) 20 mg QHS PO Last administered on 03/22/17 21: 28; Admin Dose 20 MG; Start 03/21/17 at 21:00 Gabapentin 100 mg 100 mg TID PO Last administered on 03/22/17 21:28; Admin Dose 100 MG; Start 03/21/17 at 21:00 Sodium Chloride (NS) 1,000 ml @ 100 mls/hr Q10H IV Last administered on 03:39; Admin Dose 100 MLS/HR; Start 03/21/17 at 19:01 Ondansetron HCl (Zofran Inj) 4 mg Q6H PRN IV NAUSEA AND/OR VOMITING; Start 03/21/17 at 19:30 Acetaminophen (Tylenol Tab) 650 mg Q6H PRN PO PAIN LEVEL 1-3 OR FEVER; Start 03/21/17 at 19:30 Docusate Sodium (Colace) 100 mg Q12H PRN PO CONSTIPATION Last administered on 03/22/17 12:15; Admin Dose 100 MG; Start 03/21/17 at 19:30 Magnesium Hydroxide (Milk Of Mag) 30 ml DAILY PRN PO CONSTIPATION Last administered on 03/23/17 06:51; Admin Dose 30 ML; Start 03/21/17 at 19:30 Heparin Sodium (Porcine) (Heparin (5000 Units/0.5 ml)) 5,000 unit Q12 SC Last administered on 03/22/17 21:37; Admin Dose 5,000 UNIT; Start 03/21/17 at 21:00 Diagnostic Test (Pha) (Accu-Chek) 1 ea 02 XX Last administered on 03/22/17 02: 27; Admin Dose 1 EA; Start 03/22/17 at 02:00 Insulin Glargine (Lantus) 10 unit DAILY@08 SC Last administered on 03/23/17 08 :15; Admin Dose 10 UNIT; Start 03/22/17 at 08:00 Miscellaneous Information 1 ea NOTE XX ; Start 03/21/17 at 19:30 Glucose (Glutose) 15 gm Q15M PRN PO DECREASED GLUCOSE; Start 03/21/17 at 19:30 Glucose (Glutose) 22.5 gm Q15M PRN PO DECREASED GLUCOSE; Start 03/21/17 at 19: 30 Dextrose (D50w Syringe) 25 ml Q15M PRN IV DECREASED GLUCOSE; Start 03/21/17 at 19:30 Dextrose (D50w Syringe) 50 ml Q15M PRN IV DECREASED GLUCOSE; Start 03/21/17 at 19:30 Glucagon (Glucagen) 1 mg Q15M PRN IM DECREASED GLUCOSE; Start 03/21/17 at 19:30 Glucose (Glutose) 15 gm Q15M PRN BUCCAL DECREASED GLUCOSE; Start 03/21/17 at 19 :30 Influenza Virus Vaccine (Fluzone) 0.5 ml ONCE ONCE IM* ; Start 03/24/17 at 09:00 ; Stop 03/24/17 at 09:01 Docusate Sodium (Colace) 100 mg BID PO ; Start 03/23/17 at 09:00 Polyethylene Glycol (Miralax) 17 gm DAILY PO ; Start 03/23/17 at 09:00 Carvedilol (Coreg) 3.125 mg BID PO ; Start 03/23/17 at 09:00 BECKI BATRES MD Mar 23, 2017 09:51
[2017-03-23] MEDS: DOCUSATE SODIUM 100 MG CAP PO SCH ×2 (10:19→21:05)
[2017-03-23] MEDS: GABAPENTIN 100 MG CAP PO SCH ×3 (10:19→21:04)
[2017-03-23] MEDS: POLYETHYLENE GLYCOL 17 GM PACKET PO SCH (10:19)
[2017-03-23] MEDS: ASPIRIN (EC) 81 MG TAB PO SCH (10:20)
[2017-03-23] MEDS: HEPARIN 5,000 UNIT/0.5 ML VIAL SC SCH ×2 (10:25→21:02)
[2017-03-23 12:48] VITALS: BP 98/61; PULSE 61; RESP 28
[2017-03-23 19:18] VITALS: BP 81/50; RESP 20
[2017-03-23 21:00] VITALS: BP 115/62
[2017-03-23] MEDS: ATORVASTATIN 20 MG TAB PO SCH (21:04)
[2017-03-24 01:14] VITALS: BP 102/56; RESP 20
[2017-03-24] MEDS: ACCU-CHEK XX SCH (02:00)
[2017-03-24 07:37] VITALS: BP 104/53; RESP 18
[2017-03-24] MEDS: INSULIN GLARGINE [LANtus] 3 ML PEN SC SCH (08:14)
[2017-03-24] MEDS: INSULIN ASPART [NOVOLOG] 3 ML PEN SC SCH ×4 (08:14→20:40)
[2017-03-24] MEDS: ASPIRIN (EC) 81 MG TAB PO SCH (08:21)
[2017-03-24] MEDS: GABAPENTIN 100 MG CAP PO SCH ×3 (08:22→20:31)
[2017-03-24] MEDS: DOCUSATE SODIUM 100 MG CAP PO SCH ×2 (08:23→20:31)
[2017-03-24] MEDS: POLYETHYLENE GLYCOL 17 GM PACKET PO SCH (08:23)
[2017-03-24] MEDS: HEPARIN 5,000 UNIT/0.5 ML VIAL SC SCH ×2 (08:50→20:36)
[2017-03-24] MEDS ORDERED: INFLUENZA VIRUS VACCINE 0.5 ML (DISPENSING) IM* ONE (09:00)
[2017-03-24] MEDS ORDERED: MAGNESIUM SULFATE 4 GM/100 ML 100 ML IVPB ONE (10:00)
[2017-03-24 10:17] VITALS: BP 120/56; PULSE 67
[2017-03-24 10:18] VITALS: BP 82/52; PULSE 61
--- NOTE | 2017-03-24 13:00 | PN ---
Date/Time of Note Date/Time of Note DATE: 03/24/17 TIME: 12:56 Assessment/Plan VTE Prophylaxis VTE Prophylaxis Intervention: heparin Lines/Catheters IV Catheter Type (from Nrsg): Peripheral IV Assessment/Plan Assessment/Plan 1. Diabetes Mellitus - patient having hypoglycemia episodes and will adjust lantus dose. Once sugar control improves will be stable for discharge - in service educator on board and recommendations appreciated - Glucose has been better controlled with am 111 and post prandial 180 - On Lantus and ISS - A1c 11.4 - Holding Metformin but will resume upon discharge 2. YARI - resolved - Renal US showed normal appearance 3. HTN - Continue on home medications and adjust as needed 4. Peripheral neuropathy - Continue on gabapentin 5. Hypomag - replaced. will continue to monitor 6. hyperkalemia- resolved 7. Disposition - Continue monitoring on med/surg - Adjustments made to Insulin dosing. if no further hypoglycemic episodes will d /c tmrw Subjective 24 Hr Interval Summary Free Text/Dictation Patient doing well and has no complaints. Had hypoglycemic episodes but denies any symptoms. No acute overnight events. Exam/Review of Systems Vital Signs Vitals Vital Signs Date Time Temp Pulse Resp B/P Pulse Ox O2 Delivery O2 Flow Rate FiO2 03/24/17 10:18 61 82/52 03/24/17 07:37 97.9 18 97 03/23/17 12:48 Room Air Intake and Output 03/23/17 03/23/17 03/24/17 15:00 23:00 07:00 Intake Total 350 ml 2340 ml 500 ml Output Total 550 ml Balance 350 ml 1790 ml 500 ml Exam Constitutional: alert, oriented, well developed, No distress Head: atraumatic, normocephalic Eyes: EOMI, nl sclera Neck: non-tender, supple Respiratory: clear to auscultation, No crackles/rales, No wheezing Cardiovascular: regular rate and rhythm, No murmurs Gastrointestinal: bowel sounds, non-tender, soft, No distended, No rebound or guarding Extremities: No calf tenderness, No clubbing, No edema Neurological: SENIOR ADMINISTRATIVE SUPPORT II-XII intact, nl mental status, nl speech Results Result Diagram: 03/24/17 0733 03/24/17 0733 Results 24 hrs Laboratory Tests Test 03/23/17 17:20 03/23/17 18:00 03/23/17 20:41 03/24/17 02:03 Bedside Glucose 63 L 155 268 H 65 L Test 03/24/17 02:24 03/24/17 07:33 03/24/17 07:49 03/24/17 12:06 Bedside Glucose 82 174 199 White Blood Count 4.8 # Red Blood Count 3.61 L Hemoglobin 11.8 L Hematocrit 34.2 L Mean Corpuscular Volume 94.7 Mean Corpuscular Hemoglobin 32.7 Mean Corpuscular Hemoglobin Concent 34.5 Red Cell Distribution Width 12.7 Platelet Count 189 Mean Platelet Volume 10.6 H Neutrophils % 44.7 Lymphocytes % 45.8 Monocytes % 5.6 Eosinophils % 3.3 Basophils % 0.4 Nucleated Red Blood Cells % 0.0 Neutrophils # 2.1 Lymphocytes # 2.2 Monocytes # 0.3 Eosinophils # 0.2 Basophils # 0.0 Nucleated Red Blood Cells # 0.0 Sodium Level 139 Potassium Level 4.7 Chloride Level 110 Carbon Dioxide Level 26 Anion Gap 8 Blood Urea Nitrogen 16 Creatinine 1.01 Glucose Level 166 Calcium Level 8.4 Phosphorus Level 3.4 Magnesium Level 1.5 L Albumin 2.8 L Medications Medications Current Medications Aspirin (Halfprin) 81 mg DAILY PO Last administered on 03/24/17 08:21; Admin Dose 81 MG; Start 03/22/17 at 09:00 Atorvastatin Calcium (Lipitor) 20 mg QHS PO Last administered on 03/23/17 21: 04; Admin Dose 20 MG; Start 03/21/17 at 21:00 Gabapentin (Neurontin) 100 mg TID PO Last administered on 03/24/17 12:16; Admin Dose 100 MG; Start 03/21/17 at 21:00 Ondansetron HCl (Zofran Inj) 4 mg Q6H PRN IV NAUSEA AND/OR VOMITING; Start 03/21/17 at 19:30 Acetaminophen (Tylenol Tab) 650 mg Q6H PRN PO PAIN LEVEL 1-3 OR FEVER; Start 03/21/17 at 19:30 Docusate Sodium (Colace) 100 mg Q12H PRN PO CONSTIPATION Last administered on 03/22/17 12:15; Admin Dose 100 MG; Start 03/21/17 at 19:30 Heparin Sodium (Porcine) (Heparin (5000 Units/0.5 ml)) 5,000 unit Q12 SC Last administered on 03/24/17 08:50; Admin Dose 5,000 UNIT; Start 03/21/17 at 21:00 Diagnostic Test (Pha) (Accu-Chek) 1 ea 02 XX Last administered on 03/22/17 02: 27; Admin Dose 1 EA; Start 03/22/17 at 02:00 Miscellaneous Information 1 ea NOTE XX ; Start 03/21/17 at 19:30 Glucose (Glutose) 15 gm Q15M PRN PO DECREASED GLUCOSE; Start 03/21/17 at 19:30 Glucose (Glutose) 22.5 gm Q15M PRN PO DECREASED GLUCOSE; Start 03/21/17 at 19: 30 Dextrose (D50w Syringe) 25 ml Q15M PRN IV DECREASED GLUCOSE; Start 03/21/17 at 19:30 Dextrose (D50w Syringe) 50 ml Q15M PRN IV DECREASED GLUCOSE; Start 03/21/17 at 19:30 Glucagon (Glucagen) 1 mg Q15M PRN IM DECREASED GLUCOSE; Start 03/21/17 at 19:30 Glucose (Glutose) 15 gm Q15M PRN BUCCAL DECREASED GLUCOSE; Start 03/21/17 at 19 :30 Docusate Sodium (Colace) 100 mg BID PO Last administered on 03/23/17 21:05; Admin Dose 100 MG; Start 03/23/17 at 09:00 Polyethylene Glycol 17 gm 17 gm DAILY PO Last administered on 03/23/17 10:19; Admin Dose 17 GM; Start 03/23/17 at 09:00 Magnesium Sulfate (Magnesium Sulfate 4 Gm/100 ml) 100 ml @ 25 mls/hr ONCE ONCE IVPB Last administered on 03/24/17 10:10; Admin Dose 25 MLS/HR; Start at 10:00; Stop 03/24/17 at 13:59 Insulin Glargine (Lantus) 8 unit DAILY@08 SC ; Start 03/25/17 at 08:00 BECKI BATRES MD Mar 24, 2017 13:00
[2017-03-24 15:20] VITALS: BP 86/52; RESP 18
[2017-03-24 20:27] VITALS: BP 105/65; RESP 18
[2017-03-24] MEDS: ATORVASTATIN 20 MG TAB PO SCH (20:31)
[2017-03-25] MEDS: ACCU-CHEK XX SCH (01:59)
[2017-03-25 02:27] VITALS: BP 109/60; RESP 18
[2017-03-25 07:20] VITALS: BP 101/59; RESP 16
[2017-03-25] MEDS ORDERED: INSULIN GLARGINE [LANtus] 3 ML PEN SC SCH (08:00)
[2017-03-25] MEDS: INSULIN ASPART [NOVOLOG] 3 ML PEN SC SCH ×2 (08:11→12:48)
[2017-03-25] MEDS: ASPIRIN (EC) 81 MG TAB PO SCH (08:24)
[2017-03-25] MEDS: GABAPENTIN 100 MG CAP PO SCH ×2 (08:24→13:01)
[2017-03-25] MEDS: HEPARIN 5,000 UNIT/0.5 ML VIAL SC SCH (08:30)
[2017-03-25] MEDS: DOCUSATE SODIUM 100 MG CAP PO SCH (09:00)
[2017-03-25] MEDS: POLYETHYLENE GLYCOL 17 GM PACKET PO SCH (09:00)
--- NOTE | 2017-03-25 12:11 | PN ---
Date/Time of Note Date/Time of Note DATE: 03/25/17 TIME: 12:09 Assessment/Plan VTE Prophylaxis VTE Prophylaxis Intervention: heparin Lines/Catheters IV Catheter Type (from Nrsg): Saline Lock Assessment/Plan Assessment/Plan 1. Diabetes Mellitus with hyperglycemia- improving - Patients sugars better controlled with no hypoglycemia episode. - adaptive physical educator on board and recommendations appreciated - Glucose has been better controlled with am 111 and post prandial 180 - On Lantus and ISS - A1c 11.4 - Holding Metformin but will resume upon discharge 2. YARI - resolved - Renal US showed normal appearance 3. HTN - Continue on home medications and adjust as needed 4. Peripheral neuropathy - Continue on gabapentin 5. Hypomag - stable 6. hyperkalemia- resolved 7. Disposition - Medically stable for discharge home Subjective 24 Hr Interval Summary Free Text/Dictation Patient still doing well and has no new complaints. No acute overnight events. Exam/Review of Systems Vital Signs Vitals Vital Signs Date Time Temp Pulse Resp B/P Pulse Ox O2 Delivery O2 Flow Rate FiO2 03/25/17 07:20 97.7 54 16 101/59 99 03/23/17 12:48 Room Air Intake and Output 03/24/17 03/24/17 03/25/17 15:00 23:00 07:00 Intake Total 1490 ml Output Total 1700 ml Balance -210 ml Exam Constitutional: alert, oriented, well developed, No distress Head: atraumatic, normocephalic Eyes: EOMI, nl sclera Neck: non-tender, supple Respiratory: clear to auscultation, No crackles/rales, No wheezing Cardiovascular: regular rate and rhythm, No murmurs Gastrointestinal: bowel sounds, non-tender, soft, No distended, No rebound or guarding Extremities: No calf tenderness, No clubbing, No edema Neurological: CUSTOMER SERVICE SALES CONSULTANT II-XII intact, nl mental status, nl speech Results Result Diagram: 03/24/17 0733 03/25/17 0511 Results 24 hrs Laboratory Tests Test 03/24/17 17:16 03/24/17 20:32 03/25/17 01:57 03/25/17 05:11 Bedside Glucose 179 186 116 Sodium Level 141 Potassium Level 4.7 Chloride Level 110 Carbon Dioxide Level 24 Anion Gap 12 Blood Urea Nitrogen 17 Creatinine 1.09 Glucose Level 128 Calcium Level 8.9 Phosphorus Level 3.9 Magnesium Level 1.7 Albumin 3.1 L Test 03/25/17 08:02 Bedside Glucose 167 Medications Medications Current Medications Aspirin (Halfprin) 81 mg DAILY PO Last administered on 03/25/17 08:24; Admin Dose 81 MG; Start 03/22/17 at 09:00 Atorvastatin Calcium (Lipitor) 20 mg QHS PO Last administered on 03/24/17 20: 31; Admin Dose 20 MG; Start 03/21/17 at 21:00 Gabapentin (Neurontin) 100 mg TID PO Last administered on 03/25/17 08:24; Admin Dose 100 MG; Start 03/21/17 at 21:00 Ondansetron HCl (Zofran Inj) 4 mg Q6H PRN IV NAUSEA AND/OR VOMITING; Start 03/21/17 at 19:30 Acetaminophen (Tylenol Tab) 650 mg Q6H PRN PO PAIN LEVEL 1-3 OR FEVER; Start 03/21/17 at 19:30 Docusate Sodium (Colace) 100 mg Q12H PRN PO CONSTIPATION Last administered on 03/22/17 12:15; Admin Dose 100 MG; Start 03/21/17 at 19:30 Heparin Sodium (Porcine) (Heparin (5000 Units/0.5 ml)) 5,000 unit Q12 SC Last administered on 03/25/17 08:30; Admin Dose 5,000 UNIT; Start 03/21/17 at 21:00 Diagnostic Test (Pha) (Accu-Chek) 1 ea 02 XX Last administered on 03/22/17 02: 27; Admin Dose 1 EA; Start 03/22/17 at 02:00 Miscellaneous Information 1 ea NOTE XX ; Start 03/21/17 at 19:30 Glucose (Glutose) 15 gm Q15M PRN PO DECREASED GLUCOSE; Start 03/21/17 at 19:30 Glucose (Glutose) 22.5 gm Q15M PRN PO DECREASED GLUCOSE; Start 03/21/17 at 19: 30 Dextrose (D50w Syringe) 25 ml Q15M PRN IV DECREASED GLUCOSE; Start 03/21/17 at 19:30 Dextrose (D50w Syringe) 50 ml Q15M PRN IV DECREASED GLUCOSE; Start 03/21/17 at 19:30 Glucagon (Glucagen) 1 mg Q15M PRN IM DECREASED GLUCOSE; Start 03/21/17 at 19:30 Glucose (Glutose) 15 gm Q15M PRN BUCCAL DECREASED GLUCOSE; Start 03/21/17 at 19 :30 Docusate Sodium (Colace) 100 mg BID PO Last administered on 03/24/17 20:31; Admin Dose 100 MG; Start 03/23/17 at 09:00 Polyethylene Glycol (Miralax) 17 gm DAILY PO Last administered on 03/23/17 10: 19; Admin Dose 17 GM; Start 03/23/17 at 09:00 Insulin Glargine (Lantus) 8 unit DAILY@08 SC Last administered on 03/25/17 08: 11; Admin Dose 8 UNIT; Start 03/25/17 at 08:00 BECKI BATRES MD Mar 25, 2017 12:11
[2017-03-25] MEDS ORDERED: METF1000 PO (12:18)
[2017-03-25] MEDS ORDERED: LANT3I SC (12:18)
--- NOTE | 2017-03-25 12:23 | PDOCDIS ---
Discharge Instructions DIAGNOSIS Discharge Diagnosis 1. Diabetes Mellitus with hyperglycemia, poorly controlled with A1c 11.4 2. YARI - resolved 3. HTN 4. Peripheral neuropathy 5. Electrolyte abnormality- resolved CONDITION Patient Condition: Good HOME CARE INSTRUCTIONS: Special Diet: carb control ACTIVITY: Activity Restrictions: No Restrictions FOLLOW UP/APPOINTMENTS Follow-up Plan 1. Take Lantus 8 units in the morning and continue with Metformin 1000mg twice a day 2. Check your sugars daily and if experiencing multiple readings less than 60 or above 300 please call your primary care physician 3. Please see your Primary care physician in 1 week 4. Follow diet given to your by community health educator to help with better sugar control 5. If experiencing any concerning symptoms, return to the ED BECKI BATRES MD Mar 25, 2017 12:23
--- NOTE | 2017-03-25 12:23 | PDOCDIS ---
Discharge Instructions DIAGNOSIS Discharge Diagnosis 1. Diabetes Mellitus with hyperglycemia, poorly controlled with A1c 11.4 2. YARI - resolved 3. HTN 4. Peripheral neuropathy 5. Electrolyte abnormality- resolved CONDITION Patient Condition: Good HOME CARE INSTRUCTIONS: Special Diet: carb control ACTIVITY: Activity Restrictions: No Restrictions FOLLOW UP/APPOINTMENTS Follow-up Plan 1. Take Lantus 8 units in the morning and continue with Metformin 1000mg twice a day 2. Check your sugars daily and if experiencing multiple readings less than 60 or above 300 please call your primary care physician 3. Please see your Primary care physician in 1 week 4. Follow diet given to your by clinical staff educator to help with better sugar control 5. If experiencing any concerning symptoms, return to the ED BECKI BATRES MD Mar 25, 2017 12:23
--- NOTE | 2017-03-25 12:23 | PDOCDIS ---
Discharge Instructions DIAGNOSIS Discharge Diagnosis 1. Diabetes Mellitus with hyperglycemia, poorly controlled with A1c 11.4 2. YARI - resolved 3. HTN 4. Peripheral neuropathy 5. Electrolyte abnormality- resolved CONDITION Patient Condition: Good HOME CARE INSTRUCTIONS: Special Diet: carb control ACTIVITY: Activity Restrictions: No Restrictions FOLLOW UP/APPOINTMENTS Follow-up Plan 1. Take Lantus 8 units in the morning and continue with Metformin 1000mg twice a day 2. Check your sugars daily and if experiencing multiple readings less than 60 or above 300 please call your primary care physician 3. Please see your Primary care physician in 1 week 4. Follow diet given to your by piped pocket machine operator to help with better sugar control 5. If experiencing any concerning symptoms, return to the ED BECKI BATRES MD Mar 25, 2017 12:23
[2017-03-25] MEDS ORDERED: NEED-135 MC (12:24)
--- NOTE | 2017-03-25 12:25 | DS ---
Date/Time of Note Date/Time of Note DATE: 03/25/17 TIME: 12:25 Discharge Summary Admission/Discharge Info Admit Date/Time Mar 21, 2017 at 18:32 Discharge Date/Time Discharge Diagnosis 1. Diabetes Mellitus with hyperglycemia, poorly controlled with A1c 11.4 2. YAIR - resolved 3. HTN 4. Peripheral neuropathy 5. Electrolyte abnormality- resolved Patient Condition: Good Procedures PROCEDURE: US Renal CLINICAL INDICATION: Chronic kidney disease TECHNIQUE: Multiple sonographic images of the kidneys and bladder were obtained. Evaluation of the kidneys and bladder was performed as well with laughlin scale and color and Doppler evaluation using a curved array transducer. The images were reviewed on a high-resolution PACS workstation. COMPARISON: Ultrasound 08/04/2016, CT 10/21/2015 FINDINGS: The right kidney measures 8.7 cm. The left kidney measures 8.5 cm. Renal cortical echogenicity is within normal limits. There is a mid to lower pole right renal simple cyst 1.4 cm in diameter. Kidneys are otherwise normal in appearance.. No perinephric fluid collection is seen. The bladder is distended.. IMPRESSION: 1. Simple right renal cyst. Kidneys otherwise normal appearance. 2. No hydronephrosis. 3. Mildly distended urinary bladder. Hx of Present Illness 82 yo M with PMH HTN, HLD, GERD, COPD, and DM was sent from his PCP for elevated sugars. Patient was recently in the ED for similar issues and discharge home secondary to being asymptomatic and instructed to follow up with PCP in 2 days. Patient was found to have sugar in 500 today but denies any fevers, chills, dizziness, nausea, vomiting, LOC, headaches, confusion, chest pain, shortness of breath, or abdominal issues. Patient is noncompliant with his medications. He is usually on Metformin 1gm BID but ran out of medication. He has 850mg BID that he was prescribed in [place]. He states his sugars are usually very elevated but does not have any symptoms besides neuropathy of the feet. Patient was given fluids in the ED as well as Novolog 10units. Hospital Course Patient was admitted and started on lantus 10 units. tobacco prevention health educator was consulted for further recommendations. Patient experienced hypoglycemia after Novolin given in the ED and improved after given juices. Patient found to have YARI as well and renal US showed no evidence of CKD. Renal function improved with IVF. Patients sugars continued to fluctuated but maintained good control on Lantus 8 units in the am. Patient was instructed that with an A1c of 11.4, he will need to be on Insulin as well as Metformin. He was also counseled about proper diet to help control his sugars as well. Patient never had any symptoms with both his hyperglycemia or hypoglycemia episodes. He was discharged in good condition and instructed to follow up with his PCP. He was given a script for Lantus, pen needles, and Metformin. Home Meds Active Scripts Jansen, Insulin Disposable (Tiesha Pen Needle) 1 Each Dis.needle, 1 EACH MC DAILY for ELEVATED GLUCOSE, #30 Prov:BECKI BATRES MD 03/25/17 Insulin Glargine* (Lantus*) 100 Unit/Ml Soln, 8 UNIT SC DAILY@08 for 30 Days, # 250 UNITS Prov:BECKI BATRES MD 03/25/17 Metformin Hcl* (Metformin Hcl*) 1,000 Mg Tablet, 1000 MG PO WITH BREAKFAST DINNE for 30 Days, #60 TAB Prov:BECKI BATRES MD 03/25/17 Aspirin* (Aspirin* EC) 81 Mg Tablet.dr, 81 MG PO DAILY for 30 Days, 2 Refills Prov:JERSEY RODRIGUEZ 10/30/15 Reported Medications Atorvastatin Calcium* (Atorvastatin Calcium*) 20 Mg Tablet, 20 MG PO QHS, #30 TAB 03/19/17 Gabapentin* (Gabapentin*) 100 Mg Capsule, 100 MG PO TID, #90 CAP 03/19/17 Discontinued Reported Medications Metformin Hcl* (Metformin Hcl*) 850 Mg Tablet, 850 MG PO WITH BREAKFAST DINNE, # 60 TAB WHEN PATIENT IS OUT OF HIS MEDS IN [place],HE BUY AND TAKE THERE METFORMIN 850MG. 03/21/17 Carvedilol* (Carvedilol*) 6.25 Mg Tablet, 6.25 MG PO BID, #60 TAB 03/21/17 Linagliptin (TRADJENTA) 5 Mg Tablet, 5 MG PO DAILY, TAB 10/21/15 Pioglitazone Hcl* (Actos*) 45 Mg Tablet, 45 MG PO DAILY, #30 TAB 10/21/15 Discontinued Scripts Levofloxacin* (Levaquin*) 500 Mg Tablet, 500 MG PO DAILY@06 for 5 Days, TAB Prov:JERSEY RODRIGUEZ 10/30/15 Famotidine* (Famotidine*) 20 Mg Tablet, 20 MG PO BID for 30 Days, TAB Prov:JERSEY RODRIGUEZ. 10/30/15 Follow-up Plan 1. Take Lantus 8 units in the morning and continue with Metformin 1000mg twice a day 2. Check your sugars daily and if experiencing multiple readings less than 60 or above 300 please call your primary care physician 3. Please see your Primary care physician in 1 week 4. Follow diet given to your by tobacco prevention health educator to help with better sugar control 5. If experiencing any concerning symptoms, return to the ED 6. Stop Carvedilol since your heart rate was running low in the hospital. Follow up with your PCP on whether to restart medication 1. [place] Lantus 8 unidades por la maana y continuar con metformina 1000 mg dos veces al da 2. Revise joao azcares diariamente y si experimenta varias lecturas menores de 60 o ms de 300 por favor llame a real mdico de atencin primaria 3. katie por favor a real mdico de atencin primaria en 1 semana 4. Siga la dieta kacie a real por el educador diabtico para ayudar con un mejor control del azcar 5. Si experimenta alguna relacin con los sntomas, vuelva al Ed 6. deje de carvedilol ya que real ritmo cardaco se estaba agotando en el hospital. Seguimiento con real PCP sobre si debe reiniciar la medicacin Primary Care Provider Not On Staff Doctor Time spent on discharge: > 30 minutes Pending Labs Laboratory Tests Test 03/24/17 17:16 03/24/17 20:32 03/25/17 01:57 03/25/17 05:11 Bedside Glucose 179mg/dL (70-220) 186mg/dL (70-220) 116mg/dL (70-220) Sodium Level 141mmol/L (135-144) Potassium Level 4.7mmol/L (3.5-5.1) Chloride Level 110mmol/L (97-110) Carbon Dioxide Level 24mmol/L (21-31) Anion Gap 12 (8-16) Blood Urea Nitrogen 17mg/dl (7-20) Creatinine 1.09mg/dl (0.61-1.24) Glucose Level 128mg/dl (70-220) Calcium Level 8.9mg/dl (8.4-10.2) Phosphorus Level 3.9mg/dl (2.5-4.9) Magnesium Level 1.7mg/dl (1.7-2.5) Albumin 3.1g/dl (3.3-4.9) Test 03/25/17 08:02 Bedside Glucose 167mg/dL (70-220) BECKI BATRES MD Mar 25, 2017 12:25
== END 2017-03-25 14:38 | disposition home or self-care (01) | DRG 638 ==
LOC: E/R 11:51 → MS2 18:32
PROVIDERS: ADMIT Internal Medicine; ATTEND Internal Medicine
DX: E11.65 Type 2 diabetes mellitus with hyperglycemia (principal); N17.9 Acute kidney failure, unspecified; E87.5 Hyperkalemia; E11.42 Type 2 diabetes mellitus with diabetic polyneuropathy; E83.42 Hypomagnesemia; I10 Essential (primary) hypertension; K21.9 Gastro-esophageal reflux disease without esophagitis; Z79.82 Long term (current) use of aspirin
CPT/HCPCS: 36415; 76775; 80048; 80069; 81003; 82947; 82962; 83036; 83735; 85025; 90686; 93005; 96372; J1644; J1815; J3475; J7030; J7120

== ENCOUNTER 2019-01-21 09:31 | Emergency (ER) | payer MEDICARE, OTHER ==
[~2019-01-21] VITALS: Ht 165.1 cm; Wt 55.0 kg
[~2019-01-21 09:31] MED LIST changes: -ASPI-664 PO; +ASPI-817 PO; +DOCU-144 PO; +HYDR-4011 PO; +LANT3I SC; -METF1000 PO; +METF100010 PO; +NALO4SPR NS; +NEED-135 MC
[2019-01-21 09:48] VITALS: BP 103/60; PULSE 70; RESP 18; Ht 165.1 cm; Wt 55.0 kg
[2019-01-21] MEDS ORDERED: ONDANSETRON (ODT) 4 MG TAB ODT STA (10:04)
[2019-01-21] MEDS ORDERED: HYDROCODONE/APAP (10/325) TAB PO ONE (10:30)
== END 2019-01-21 11:39 | disposition home or self-care (01) ==
LOC: FTE 09:31
DX: S29.001A Unspecified injury of muscle and tendon of front wall of thorax, initial encounter (principal); I10 Essential (primary) hypertension; E11.9 Type 2 diabetes mellitus without complications; R94.02 Abnormal brain scan; W01.10XA Fall on same level from slipping, tripping and stumbling with subsequent striking against unspecified object, initial encounter; Y92.9 Unspecified place or not applicable; Z79.4 Long term (current) use of insulin; Z79.82 Long term (current) use of aspirin
CPT/HCPCS: 70450; 71100; 72125